=== PATIENT | male | born 1985 | race Asian ===

== ENCOUNTER → 2017-02-05 | Outpatient (RCR) | payer BC | END | disposition home or self-care (01) | LOC: PTY 13:57 | DX: M84.372D Stress fracture, left ankle, subsequent encounter for fracture with routine healing (principal); M76.72 Peroneal tendinitis, left leg; M76.62 Achilles tendinitis, left leg; M25.372 Other instability, left ankle; X58.XXXD Exposure to other specified factors, subsequent encounter ==

== ENCOUNTER 2017-02-17 15:38 | Outpatient (RCR) | payer BC | END 2017-03-08 | disposition home or self-care (01) | LOC: PTY 15:38 | DX: M84.372D Stress fracture, left ankle, subsequent encounter for fracture with routine healing (principal); M76.72 Peroneal tendinitis, left leg; M76.62 Achilles tendinitis, left leg; M25.372 Other instability, left ankle ==